=== PATIENT | male | born 1960 | race African-American/Black ===

== ENCOUNTER 2020-09-01 07:06 | Emergency (ER) | payer OTHER ==
[~2020-09-01] VITALS: Ht 175.3 cm; Wt 70.0 kg
[2020-09-01 08:11] VITALS: BP 118/65
[2020-09-01] MEDS ORDERED: ACETAMINOPHEN 325MG TABLET PO ONE (08:30)
== END 2020-09-01 08:57 | disposition home or self-care (01) ==
LOC: ER 07:06
DX: S00.81XA Abrasion of other part of head, initial encounter (principal); Y04.2XXA Assault by strike against or bumped into by another person, initial encounter; Y07.59 Other non-family member, perpetrator of maltreatment and neglect; Y93.89 Activity, other specified; Y92.038 Other place in apartment as the place of occurrence of the external cause
CPT/HCPCS: 99282